=== PATIENT | female | born 1955 | race Caucasian/White ===

== ENCOUNTER 2019-10-01 14:48 | Observation (INO) ==
--- NOTE | 2019-10-01 15:22 | ED.PDOC ---
General ED Provider: Dr. MARCUS TALAMANTES Chief Complaint: Abdominal Pain Stated Complaint: Chest pain "like a heart attack" when eating food. OK last nigh with chicken soup; today sharp pain when eating steak at lunch - pain is substernal/epigastric...followed by vomiting. Time Seen by Physician: 15:05 Mode of Arrival: Walk-In Information Source: Patient Exam Limitations: No limitations (except patient is a poor historian - has difficulty expressing specific answers to specific questions) Nursing and Triage Documentation Reviewed and Agree: Yes Does patient meet sepsis criteria?: No System Inflammatory Response Syndrome: Not Applicable Sepsis Protocol: For patient's 13 years and over: Temp is 96.8 and below OR 101 and greater Pulse >90 BPM Resp >20/minute Acutely Altered Mental Status Are patient's symptoms suggestive of a new infection, such as: -Pneumonia -Skin, Soft Tissue -Endocarditis -UTI -Bone, Joint Infection -Implantable Device -Acute Abdominal Infection -Wound Infection -Meningitis -Blood Stream Catheter Infection -Unknown Review of Systems Review Of Systems Constitutional: Reports No symptoms Eyes: Reports No symptoms Ears, Nose, Mouth, Throat: Reports No symptoms and Ear pain Respiratory: Reports No symptoms and Cough Cardiac: Reports No symptoms and Chest pain (When eating/swallowing) GI: Reports No symptoms Musculoskeletal: Reports No symptoms Skin: Reports No symptoms Neurological: Reports No symptoms All Other Systems: Reviewed and Negative FORMERLY [facility] Medical History History of appendectomy (Acute) History of cholecystectomy (Acute) History of hysterectomy (Acute) Hypertension (Acute) Hypoglycemia (Acute) Family History Other Cancer Hypertension Social History Smoking and tobacco status: Former smoker How long ago did patient quit smoking: approx 40 years ago Female Reproductive History Menstrual Hx Hysterectomy: Yes Hx Tubal Ligation: No Physical Exam Physical Exam Appearance: Reports Well-appearing Ill-appearing: None Pain Distress: Mild (Epigastric/substernal with eating/swallowing solid foods) Eyes: Reports AMIE and EOMI ENT: Reports Ears normal and Nose normal Neck: Supple Respiratory: Reports Airway patent Cardiovascular: Reports RRR GI/: Reports Soft Musculoskeletal: Reports Normal strength Skin: Reports Warm, Dry and Normal color Neurological: Reports Sensation intact and Motor intact Psychiatric: Reports Affect appropriate and Mood appropriate Interpretation EKG Interpretation Time of EKG #1: 15:59 Rate: Normal Rhythm: Sinus Ectopy: None [place]: NL ST Segment: Normal Interpretation: Wide QRS; no apparent acute changes Re-Evaluation Re-Evaluation Time of Re-Evaluation: 17:10 Status: Unchanged (Was improved when seen by me versus episode at the time of eating steak at lunch) Vital Signs Stable: Yes Appearance: NAD Skin: Warm and Dry Neuro: Alert and Oriented X3 Additional Comments: Advised of negative lab findings and discussion with Dr. Hanson/plan admission and watch/do GI Series swallowing study Physician Notification Case Discussed Physician Notified: Dr Hanson; discussion re paitent and nature of CP with eating/swallowing Critical Care Note Critical Care Note Total Time (mins): 40 Comments: Review of EKG, clinical and historical picture, labs, X Ray and discussion with Dr. Hanson and decision to admit Course Course Hematology/Chemistry: 10/02/19 04:50 10/02/19 04:50 Orders, Labs, Meds: Lab Review 10/01/19 10/01/19 10/01/19 15:45 15:47 15:47 WBC 11.40 H RBC 4.55 Hgb 13.8 Hct 40.2 MCV 88.4 MCH 30.3 MCHC 34.3 RDW Coeff of Adeola 12.4 Plt Count 401 Immature Gran % (Auto) 0.3 Neut % (Auto) 65.4 Lymph % (Auto) 28.0 [place] % (Auto) 4.1 Eos % (Auto) 1.8 Baso % (Auto) 0.4 Immature Gran # (Auto) 0.0 Neut # (Auto) 7.5 H Lymph # (Auto) 3.2 [place] # (Auto) 0.5 Eos # (Auto) 0.2 Baso # (Auto) 0.1 Sodium 139.0 Potassium 3.84 Chloride 106.1 Carbon Dioxide 23.8 Anion Gap 12.94 BUN 18.0 H Creatinine 0.61 Estimated GFR (MDRD) 99.00 BUN/Creatinine Ratio 29.50 Glucose 97.9 Calcium 9.12 Total Bilirubin 0.26 AST 34.8 ALT 19.0 Alkaline Phosphatase 89.4 Total Creatine Kinase 141.5 H CK-MB (CK-2) 2.060 CK-MB (CK-2) % 1.4500 Troponin I Cancelled < 0.012 Total Protein 7.29 Albumin 4.17 Globulin 3.12 Albumin/Globulin Ratio 1.33 Orders Category Date Time Status EKG-(ED ONLY) Stat CARDIO 10/01/19 15:22 Completed CBC W/ AUTO DIFF Stat LAB 10/01/19 15:47 Completed COMPREHENSIVE METABOLIC PANEL Stat LAB 10/01/19 15:47 Completed TROPONIN I Stat LAB 10/01/19 15:47 Completed CHEST, 2 VIEWS PA & LAT Stat RADS 10/01/19 15:22 Completed Medications Generic Name Dose Route Start Last Admin Trade Name Freq PRN Reason Stop Dose Admin Acetaminophen 650 mg 10/01/19 18:32 Tylenol PO Q4H PRN Pain Aspirin 81 mg 10/02/19 08:00 Aspirin Ec PO DAILYWM SHANITA Atropine Sulfate 0.5 mg 10/01/19 18:32 Atropine Sulfate Pfs IVP ONCE PRN Symptomatic Bradycardia Chlordiazepoxide HCl 10 mg 10/01/19 21:00 10/01/19 21:21 Librium PO 10 mg BID SHANITA Administration Losartan Potassium 50 mg 10/01/19 21:00 10/01/19 21:21 Cozaar PO 50 mg BID SHANITA Administration Nebivolol 5 mg 10/02/19 09:00 Bystolic PO DAILY SHANITA Nitroglycerin 0.4 mg 10/01/19 18:32 Nitrostat SL Q5MIN X 3 DOSES PRN Chest Pain Ondansetron HCl 4 mg 10/01/19 20:40 10/01/19 21:21 Zofran 4 Mg/2 Ml IVP 4 mg Q6H PRN Administration Nausea / Vomiting Pantoprazole Sodium 40 mg 10/02/19 06:30 Protonix PO QDAC SHANITA Sodium Chloride 1 syr 10/01/19 21:00 10/02/19 04:50 Saline Flush IVF 1 syr Q8HR SHANITA Administration Discontinued Medications Generic Name Dose Route Start Last Admin Trade Name Freq PRN Reason Stop Dose Admin Pantoprazole Sodium 40 mg 10/02/19 09:00 Protonix PO DAILY SHANITA Vital Signs: Temp Pulse Resp BP Pulse Ox 10/01/19 14:48 100.3 F H 64 16 179/89 H 98 Discharge Plan Discharge Patient Disposition: ADMITTED INPATIENT Discharge Problem: Chest pain ED Provider: MARCUS TALAMANTES Condition: Good Discharge Date/Time: 10/01/19 19:40
[2019-10-01 15:50] LABS: HEMATOCRIT 40.2 % (37.0-47.0)
--- NOTE | 2019-10-01 15:58 | DI ---
Exam: Two views of the chest. Comparison: None available. Reason for exam: Chest pain. FINDINGS: No pneumothorax, pleural effusion, or focal consolidation. Patchy airspace opacities are seen in the lung bases. The cardiac silhouette is prominent in size. There is exaggeration of the t horacic kyphotic curve. Grade 1 retrolithesis is seen in the lower thoracic spine on the lateral vie w. Impression: Basilar atelectasis/pneumonia with mild cardiomegaly. Grade 1 retrolithesis in the lower thoracic spine. If clinical concern exists, further evaluation ma y be performed.
[2019-10-01] MEDS ORDERED: ATROPINE SULFATE PFS IVP PRN (18:32)
[2019-10-01] MEDS ORDERED: NITROSTAT SL PRN (18:32)
[2019-10-01] MEDS ORDERED: TYLENOL PO PRN (18:32)
[2019-10-01 20:07] VITALS: BMI 25.3
[2019-10-01] MEDS ORDERED: ZOFRAN 4 MG/2 ML IVP PRN (20:40)
[2019-10-01] MEDS: COZAAR PO SCH (21:21)
[2019-10-01] MEDS: LIBRIUM PO SCH (21:21)
[2019-10-02] MEDS ORDERED: PROTONIX PO SCH ×2 (06:30→09:00)
--- NOTE | 2019-10-02 09:28 | PCM.PROG ---
Attending Provider: ATTENDING PROVIDER: Dr. CASEY GOLDSTEIN This patient is seen with Berta Hanks, Nurse Practitioner. DATE OF SERVICE: 10/02/19 SUBJECTIVE: This 64 year old /WHITE F was hospitalized 10/01/19. The patient is resting comfortably. She is having epigastric pain and vomiting after eating not associated with different foods. She has been on Protonix for some time. At this time the pain is mid sternum. She has a history of hypertension and obesity. NO shortness of breath. No sweating. Non-exertional chest pain that is relieved with vomiting. REVIEW OF SYSTEMS: CONSTITUTIONAL: No night sweats. No fatigue, malaise, lethargy. No fever or chills. HEENT: Eyes: No visual changes. No eye pain. No eye discharge. ENT: No runny nose. No epistaxis. No sinus pain. No odynophagia. No congestion. RESPIRATORY: No cough, no congestion. No hemoptysis. No shortness of breath. CARDIOVASCULAR: No angina symptoms. No CHF symptoms. No atypical chest pain for CAD. No palpitations. No orthopnea.. GASTROINTESTINAL: No abdominal pain. Nausea and vomiting. No diarrhea or constipation. No hematemesis. No hematochezia. Epigastric pain GENITOURINARY: No urgency. No frequency. No dysuria. No hematuria. No obstructive symptoms. No discharge. No pain. No significant abnormal bleeding. MUSCULOSKELETAL: No musculoskeletal pain; no joint swelling. NEUROLOGICAL: Awake, alert, oriented to time, place and person. No headache. No neck pain. No syncope. No seizures. No dizziness. PSYCHIATRIC: Anxious. No depression. No suicidal thoughts. No homicidal thoughts. SKIN: No rash. No lesions. No wounds. ENDOCRINE: No unexplained weight loss. No weight gain. HEMATOLOGIC/LYMPHATIC: No anemia. No purpura. No petechiae. No prolonged or excessive bleeding. No palpable lymph nodes. PHYSICAL EXAMINATION: GENERAL: The patient is awake, alert and oriented, lying in bed in no distress. VITAL SIGNS: Temperature 97.5 F, Pulse 63, Respiratory Rate 20, BP 134/87, Pulse Ox 96% HEENT: Head normocephalic, atraumatic. Eyes: Extraocular muscles are intact. Pupils are equal, round and reactive to light and accommodation. Ears: No lesions. Nose appeared normal. Throat: No exudate or erythema. NECK: Supple. No JVD, no carotid bruit. No lymphadenopathy or thyromegaly. LUNGS: Diminished breath sounds. Clear to auscultation. Percussion note normal. Chest symmetrical. Epigastric tenderness. HEART: S1, S2, no S3. No murmurs. No cyanosis or clubbing. No ascites. Pulses: Dorsalis pedis and posterior tibial pulses +1 to +2 both sides. ABDOMEN: Soft. Non-tender. Bowel sounds active. No CVA tenderness. No mass felt. EXTREMITIES: No edema. Full range of motion of all extremities, equal. NEUROLOGIC: No focal deficit. Cranial nerves II through XII are grossly intact. No headache, no double vision or headache. SKIN: Not dry. Intact. Turgor-normal. LYMPHATIC: No palpable lymph nodes/no lymphedema. MUSCULOSKELETAL: Normal joints with no swelling. Muscle tone is normal. LAB REVIEW: 10/02/19 04:50 10/02/19 04:50 10/02/19 04:50: WBC 7.16, RBC 4.62, Hgb 13.7, Hct 42.0, MCV 90.9, MCH 29.7, MCHC 32.6, RDW Coeff of [place] 12.6, Plt Count 393, Immature Gran % (Auto) 0.3, Neut % (Auto) 53.6, Lymph % (Auto) 36.0, [place] % (Auto) 5.9, Eos % (Auto) 3.8, Baso % (Auto) 0.4, Immature Gran # (Auto) 0.0, Neut # (Auto) 3.8, Lymph # (Auto) 2.6, [place] # (Auto) 0.4, Eos # (Auto) 0.3, Baso # (Auto) 0.0 10/02/19 04:50: Sodium 141.2, Potassium 3.85, Chloride 104.4, Carbon Dioxide 28.3, Anion Gap 12.35, BUN 17.0, Creatinine 0.57 L, Estimated GFR (MDRD) 107.00, BUN/Creatinine Ratio 29.82, Glucose 88.8, Calcium 8.91, Total Bilirubin 0.57, AST 25.5, ALT 18.6, Alkaline Phosphatase 76.2, Total Protein 6.92, Albumin 3.89, Globulin 3.03, Albumin/Globulin Ratio 1.28 10/02/19 02:45: Total Creatine Kinase 84.0, Troponin I < 0.012 10/01/19 15:47: Sodium 139.0, Potassium 3.84, Chloride 106.1, Carbon Dioxide 23.8, Anion Gap 12.94, BUN 18.0 H, Creatinine 0.61, Estimated GFR (MDRD) 99.00, BUN/Creatinine Ratio 29.50, Glucose 97.9, Calcium 9.12, Total Bilirubin 0.26, AST 34.8, ALT 19.0, Alkaline Phosphatase 89.4, Troponin I < 0.012, Total Protein 7.29, Albumin 4.17, Globulin 3.12, Albumin/Globulin Ratio 1.33 10/01/19 15:47: WBC 11.40 H, RBC 4.55, Hgb 13.8, Hct 40.2, MCV 88.4, MCH 30.3, MCHC 34.3, RDW Coeff of [place] 12.4, Plt Count 401, Immature Gran % (Auto) 0.3, Neut % (Auto) 65.4, Lymph % (Auto) 28.0, [place] % (Auto) 4.1, Eos % (Auto) 1.8, Baso % (Auto) 0.4, Immature Gran # (Auto) 0.0, Neut # (Auto) 7.5 H, Lymph # (Auto) 3.2, [place] # (Auto) 0.5, Eos # (Auto) 0.2, Baso # (Auto) 0.1 10/01/19 15:45: Total Creatine Kinase 141.5 H, CK-MB (CK-2) 2.060, CK-MB (CK-2) % 1.4500, Troponin I Cancelled ASSESSMENT: Please see below. 1. Chest pain, likely atypical 2. History of GERD 3. Hypertension 4. Anxiety PLAN: 1. The patient has upper GI today 2. CT abdomen and pelvis 3. Increase Protonix 40mg BID 4. Carafate 1gram QID 5. Echo 6. Lipid Panel Plan and coordination of the patient's care discussed in the presence of Electrical Mechanical Technician and nurse. SCRIBED BY: NILSA GOODRICH Divinity Teacher scribed while in presence of service performed by Dr. Goldstein/Berta Hanks APRN on 10/02/19 ([id number])
[2019-10-02] MEDS: LIBRIUM PO SCH ×2 (11:59→21:50)
[2019-10-02] MEDS: CARAFATE PO SCH ×3 (11:59→21:49)
[2019-10-02] MEDS: ASPIRIN EC PO SCH (12:00)
[2019-10-02] MEDS: BYSTOLIC PO SCH (12:00)
[2019-10-02] MEDS: COZAAR PO SCH ×2 (12:00→21:49)
[2019-10-02] MEDS: PROTONIX PO SCH ×2 (12:00→17:43)
--- NOTE | 2019-10-02 13:02 | DI ---
EXAM: Upper GI series HISTORY: Swallowing difficulty COMPARISON: None FINDINGS: Upper GI series was performed using barium. Tertiary contractions seen in the esophagus, c an be seen in dysmotility. Small to moderate sliding hiatal hernia. Mild narrowing near the gastroeso phageal junction may relate to Schatzki's ring. Reflux seen during real time examination. 13 mm bariu m tablet was administered and becomes briefly lodged at the gastroesophageal junction and passes into the stomach. The stomach appears grossly normal without mass lesion or ulcer. Duodenal diverticulum. IMPRESSION: 1. Small to moderate sliding hiatal hernia. 2. Mild narrowing near the gastroesophageal junction may relate to Schatzki's ring. Finding can be correlate with endoscopy. 3. 13 mm barium tablet was administered and becomes briefly lodged at the gastroesophageal junction and passes into the stomach. 4. Tertiary contractions in the esophagus, can be seen in dysmotility. 5. Duodenal diverticulum
--- NOTE | 2019-10-02 13:06 | CT ---
EXAM: CT abdomen pelvis with and without contrast HISTORY: Epigastric pain and vomiting COMPARISON: None TECHNIQUE: CT abdomen pelvis performed with and without intravenous contrast. Coronal and sagittal reformatted images obtained. FINDINGS: Motion artifact limits evaluation. Bibasilar cyst subsegmental atelectasis and/or scarring . No free air. No acute abnormalities of the bones. Degenerative change in the spine. Hemangioma L3. Heart borderline enlarged. Coronary calcifications. Liver appears normal. The patient status post cholecystectomy. Pancreas unremarkable. Spleen unremarkable. Adrenals unremarkable. Kidneys unremarkable. No calculi visualized in the normal course of the ureters. Bladder decompressed and p oorly very bladder only minimally distended and poorly dilated. Patient was post hysterectomy. Smal l fat-containing periumbilical hernia. Aorta normal in caliber. No lymphadenopathy or ascites. Sma ll hiatal hernia. Duodenal diverticulum. No dilated loops small bowel. Scattered fluid-filled loop s small bowel may relate to enteritis. Appendix appears normal. Portions of the colon decompressed and poorly evaluated. Mild fecal retention in the colon. IMPRESSION: 1. Possible mild enteritis. Recommend clinical correlation. 2. Mild fecal retention in the colon. 3. Small hiatal hernia. 4. Duodenal diverticulum 5. Coronary calcifications.
--- NOTE | 2019-10-02 13:22 | PN ---
DATE OF SERVICE: 10/01/19 SUBJECTIVE: The patient was admitted through the Emergency Room with complaint of having acute gastroenteritis type of symptoms. The patient is unable to swallow. The patient will be admitted with IV fluids. In the morning she is going to go through upper GI with barium esophagogram. She will be put on Protonix and Carafate. TIME SPENT: More than 30 minutes. Plan and coordination of the patient's care discussed in the presence of nurse. MEHREEN
[2019-10-02] MEDS: REGLAN PO SCH ×2 (17:43→21:50)
[2019-10-03] MEDS: PROTONIX PO SCH (05:30)
[2019-10-03] MEDS: CARAFATE PO SCH ×2 (05:30→11:29)
[2019-10-03] MEDS: REGLAN PO SCH ×2 (05:31→11:28)
[2019-10-03 06:11] LABS: HEMATOCRIT 40.5 % (37.0-47.0)
[2019-10-03] MEDS: LIBRIUM PO SCH (08:56)
[2019-10-03] MEDS: ASPIRIN EC PO SCH (08:56)
[2019-10-03] MEDS: COZAAR PO SCH (08:56)
[2019-10-03] MEDS: BYSTOLIC PO SCH (08:57)
[2019-10-03 10:10] VITALS: BP 102/66; TEMP 98.2
--- NOTE | 2019-10-06 09:54 | PN ---
DATE OF SERVICE: 10/02/19 SUBJECTIVE: The patient was seen and examined with the nurse practitioner. The patient's upper GI reports were explained to the patient that she has dysmotility and esophageal spasms which could be triggered by reflux but it could independently show up and can cause chest pains and difficulty swallowing. The patient is going to be started on Reglan 5 mg prior to meals. Continue Protonix and Carafate. The patient's condition has improved. She is able to keep soft food down. Cardiac markers are negative. Chest pain is atypical. TIME SPENT: More than 30 minutes. Plan and coordination of the patient's care discussed in the presence of nurse. MEHREEN
--- NOTE | 2019-10-06 12:22 | ECHO2D ---
Date of Exam: 10/03/19 Ordering Physician: DR. CASEY GOLDSTEIN Room #: 116 Reason for Echo: SOB, CHEST PAIN, EPIGASTRIC PAIN M-Mode Normal Adult Results LV Dimensions Normal Adult Results AoV Opening excursions >1.6 >1.6 LVEDD-base- 3.5-5.8 5.0 Ao root dimensions 2.0-3.7 3.6 LVESD-base- 3.1-4.6 L. Atrium dimensions 1.9-3.8 3.8 Post. Wall thickness 0.8-1.1 1.1 IV septum (thickness) 0.7-1.2 1.2 Post. Wall excursion 0.72-1.3 NORMAL Septal motion NORMAL Systolic motion R. Ventricular cavity 1.5-2.0 NORMAL LVEF 60% 60% Paradoxical septal wall motion NORMAL 2-D : 2-D M Mode Echocardiogram was performed using apical four chamber and left parasternal long and short axis views. Mitral, tricuspid and aortic valves appear to be normal. Contractility of the left ventricle seems to be normal, so is the cavity size. Left atrial cavity size and aortic root appear to be normal. There is no pericardial effusion. There is no thrombus noted in the left ventricle or left atrial cavity. No mitral valve prolapse noted. M-MODE: MV: NORMAL AV: NORMAL TV: NORMAL PV: CHAMBER SIZE: NORMAL WALL MOTION: NORMAL PERICARDIUM: NORMAL INTERPRETATION: 1. BORDERLINE LEFT VENTRICULAR HYPERTROPHY 2. NORMAL VALVES 3. NORMAL LEFT VENTRICULAR CONTRACTILITY MTDD
--- NOTE | 2019-10-06 13:26 | PN ---
DATE OF SERVICE: 10/03/2019 OBSERVATION ADMISSION/DISCHARGE NOTE SUBJECTIVE: 64 year old white female hospitalized nausea, vomiting and acute gastroenteritis type of symptoms. The patient also had difficulty swallowing with dysphagia. The patient on further work up had a normal CT scan of the abdomen. Upper GI showed esophageal spasm with dysmotility with possibility of stricture. In any case the patient will undergo EGD. During the stay in the hospital she was given Reglan, Carafate and Protonix and IV fluids. Her swallowing improved. She is able to eat soft diet without any problems. She has no nausea and no vomiting. Echo showed normal LV contractility and normal LV size, normal valvular structures. EKG and cardiac markers were negative. The patient's chest pain was typical of esophageal spasm, atypical at rest, nonexertional. The patient was discharged home in stable condition to be followed as an outpatient. REVIEW OF SYSTEMS: CONSTITUTIONAL: No night sweats. No fatigue, malaise, lethargy. No fever or chills. HEENT: Eyes: No visual changes. No eye pain. No eye discharge. ENT: No runny nose. No epistaxis. No sinus pain. No sore throat. No odynophagia. No congestion. RESPIRATORY: No cough, no congestion. No hemoptysis. No shortness of breath. CARDIOVASCULAR: No angina symptoms. No CHF symptoms. No atypical chest pain for CAD. No palpitations. No PND. No orthopnea. GASTROINTESTINAL: No abdominal pain. No nausea or vomiting. No diarrhea or constipation. No hematemesis. No hematochezia. GENITOURINARY: No urgency. No frequency. No dysuria. No hematuria. No obstructive symptoms. No discharge. No pain. No significant abnormal bleeding. MUSCULOSKELETAL: No musculoskeletal pain; no joint swelling. NEUROLOGICAL: No headache. No neck pain. No syncope. No seizures. No dizziness. PSYCHIATRIC: Not anxious. No depression. No suicidal thoughts. No homicidal thoughts. SKIN: No rash. No lesions. No wounds. ENDOCRINE: No unexplained weight loss. No weight gain. HEMATOLOGIC/LYMPHATIC: No anemia. No purpura. No petechiae. No prolonged or excessive bleeding. No palpable lymph nodes. PHYSICAL EXAMINATION: VITAL SIGNS: Temperature 98.2, pulse 76, blood pressure 102/66, respiratory rate 18 and oxygen saturation 95% on room air. HEENT: Head normocephalic, atraumatic. Eyes: Extraocular muscles are intact. Pupils are equal, round and reactive to light and accommodation. Ears: No lesions. Nose appeared normal. Throat: No exudate or erythema. NECK: Supple. No JVD, no carotid bruit. No lymphadenopathy or thyromegaly. LUNGS: Clear to auscultation. Percussion note normal. Chest symmetrical. HEART: S1, S2, no S3. No murmurs. No cyanosis or clubbing. No ascites. Pulses: Dorsalis pedis and posterior tibial pulses +1 to +2 bilaterally. ABDOMEN: Soft. Nontender. Bowel sounds active. No CVA tenderness. No mass felt. EXTREMITIES: No edema. Full range of motion of all extremities, equal. NEUROLOGIC: No focal deficit. Cranial nerves II through XII are grossly intact. No headache, no double vision or headache. SKIN: Not dry. Intact. Turgor - normal. LYMPHATIC: No palpable lymph nodes/no lymphedema. MUSCULOSKELETAL: Normal joints with no swelling. Muscle tone is normal. LABS: hgb 13.7, hct 40, WBC 11,000 normal differential, creatinine 0.5, BUN 20, potassium 3.7, Echocardiogram showed borderline LVH with normal LV contractility and normal valves. EKG is sinus rhythm. No acute changes times two. Cardiac markers negative for acute myocardial event. ASSESSMENT: 1. Acute gastroenteritis 2. Dysphagia with chest pain likely esophageal spasm with dysmotility of the esophagus 3. Dehydration, resolved 4. Hypertension 5. Generalized anxiety disorder PLAN: 1. Discharge home. 2. Instruction to come back on Saturday morning as an outpatient to be seen on followup. 3. No work until released. 4. Appointment scheduled with Randee Mar APRN for Dr. Karson Fernandez on October 15 at 2:15pm. TIME SPENT: More than 30 minutes. Plan and coordination of the patient's care discussed in the presence of nurse. MEHREEN
--- NOTE | 2019-10-06 13:39 | DS ---
DATE OF SERVICE: 10/03/2019 FINAL DIAGNOSIS: 1. Acute gastroenteritis 2. Dysphagia with chest pain likely esophageal spasm with dysmotility of the esophagus 3. Dehydration, resolved 4. Hypertension 5. Generalized anxiety disorder DISCHARGE INSTRUCTIONS: Discharge home. Instruction to come back on Saturday morning as an outpatient to be seen on followup. No work until released. MEDICATIONS AT DISCHARGE: Librium 10mg twice a day PRN Losartan 50mg BID Bystolic 5mg PO daily Pantoprazole 40mg twice a day Reglan 5mg TID prior to meals Carafate 1 gram QID NEW PRESCRIPTIONS: Reglan 5mg TID to be taken for 10 days Carafate 1 gram to be taken for 15 days. Pantoprazole 40mg for a month with one refill. DIET INSTRUCTIONS: Soft bland diet till you see the doctor. ACTIVITY: Resume as tolerated SMOKING: Former smoker DISEASE SPECIFIC EDUCATION: Appointments Medications Diet LABS: hgb 13.7, hct 40, WBC 11,000 normal differential, creatinine 0.5, BUN 20, potassium 3.7, Echocardiogram showed borderline LVH with normal LV contractility and normal valves. EKG is sinus rhythm. No acute changes times two. Cardiac markers negative for acute myocardial event. HOSPITAL COURSE: 64 year old white female hospitalized nausea, vomiting and acute gastroenteritis type of symptoms. The patient also had difficulty swallowing with dysphagia. The patient on further work up had a normal CT scan of the abdomen. Upper GI showed esophageal spasm with dysmotility with possibility of stricture. In any case the patient will undergo EGD. During the stay in the hospital she was given Reglan, Carafate and Protonix and IV fluids. Her swallowing improved. She is able to eat soft diet without any problems. She has no nausea and no vomiting. Echo showed normal LV contractility and normal LV size, normal valvular structures. EKG and cardiac markers were negative. The patient's chest pain was typical of esophageal spasm, atypical at rest, nonexertional. The patient was discharged home in stable condition to be followed as an outpatient. CONDITION: Stable TIME SPENT: More than 60 minutes. [facility]
--- NOTE | 2019-10-06 13:39 | PN ---
OBSERVATION 10/01/2019: Level 5 10/02/2019: Intermediate 10/03/2019: D as in discharge MTDD
--- NOTE | 2019-10-13 13:56 | SSS ---
DATE OF SERVICE: 10/01/19 (ADMIT) 10/03/19 (DISCHARGE) REASON FOR ADMISSION: Chest pain/epigastric pain. HISTORY OF PRESENT ILLNESS: 64-year-old female presented to ER with complaint of chest pain for approximately one month. On day of arrival she reported epigastric pain while eating lunch, became nauseated and vomited. She vomited several times. Pain resolved after vomiting. This has happened before. REVIEW OF SYSTEMS: CONSTITUTIONAL: No night sweats. No fatigue, malaise, lethargy. No fever or chills. HEENT: Eyes: No visual changes. No eye pain. No eye discharge. ENT: No runny nose. No epistaxis. No sinus pain. No sore throat. No odynophagia. No ear pain. No congestion. RESPIRATORY: No cough, no congestion. No hemoptysis. No shortness of breath. CARDIOVASCULAR: No angina symptoms. No CHF symptoms. Chest pain with eating and swallowing. No palpitations. No orthopnea. GASTROINTESTINAL: Emesis several times. No abdominal pain. No nausea. No diarrhea or constipation. No hematemesis. No hematochezia. GENITOURINARY: No dysuria. No hematuria. No obstructive symptoms. No discharge. No pain. No significant abnormal bleeding. MUSCULOSKELETAL: No musculoskeletal pain. No joint swelling. NEUROLOGICAL: Awake, alert, oriented to time, place and person. No headache. No neck pain. No syncope. No seizures. No dizziness. PSYCHIATRIC: Not anxious. No depression. No suicidal thoughts. No homicidal thoughts. SKIN: No rash. No lesions. No wounds. ENDOCRINE: No unexplained weight loss. No weight gain. HEMATOLOGIC/LYMPHATIC: No anemia. No purpura. No petechiae. No prolonged or excessive bleeding. No palpable lymph nodes. PAST HISTORY: Hypertension Appendectomy Cholecystectomy Hysterectomy GERD PERSONAL/FAMILY HISTORY/SOCIAL HISTORY: The patient is . She lives alone. She relies on denominational family for support. She works. No alcohol. Nonsmoker. Independent with ADLs. PHYSICAL EXAMINATION: GENERAL: The patient is a female, age 64 years. Height is 68 inches, weight 166 #. BMI 25.3. Vital signs: Temperature 97.6, pulse 61, respiratory rate 20, BP 148/96 left, right 166/99. 100% on room air. HEENT: Head normocephalic, atraumatic. Eyes: Extraocular muscles are intact. Pupils are equal, round and reactive to light and accommodation. Ears: No lesions. Nose appeared normal. Throat: No exudate or erythema. NECK: Supple. No JVD, no carotid bruit. No lymphadenopathy or thyromegaly. LUNGS: Clear to auscultation. Percussion note normal. Chest symmetrical. HEART: S1, S2, no S3. No murmurs. No cyanosis or clubbing. No ascites. Pulses: Dorsalis pedis and posterior tibial pulses +1 to +2 bilaterally. ABDOMEN: Epigastric tenderness. Soft. Bowel sounds active. No CVA tenderness. No mass felt. EXTREMITIES: No edema. Full range of motion of all extremities, equal. NEUROLOGIC: No focal deficit. Cranial nerves II through XII are grossly intact. No headache, no double vision or headache. SKIN: Dry. Intact. Turgor - normal. LYMPHATIC: No palpable lymph nodes/no lymphedema. MUSCULOSKELETAL: Normal joints with no swelling. Muscle tone is normal. Old/present records reviewed Office records reviewed. EDUCATION CARRIED OUT ABOUT: Peptic ulcer, angina. ALLERGIES: PENICILLIN AND SULFA MEDICATIONS: Bystolic ASA Losartan Librium Protonix LABS/EKG'S/X-RAY/ECHO/ABG: WBC 11.40, BUN 18, CPK 141.5. Chest x-ray - basilar atelectasis/pneumonia with mild cardiomegaly. PROGRESS NOTES: See EMR. DIAGNOSES: 1. EPIGASTRIC/CHEST PAIN/GASTROENTERITIS 2. HISTORY OF HYPERTENSION RECOMMENDATIONS/PLAN: 1. 10/03 GI appointment 10/15/[address] Fernandez/Randee Mar APRN. 2. Protonix 40 mg. 3. Carafate 1 gm p.o. daily 4. IV fluids. 5. Soft diet. TIME SPENT: More than 70 minutes. MTDD
== END 2019-10-03 11:50 | disposition home or self-care (01) ==
LOC: ED 14:48 → INTOOBSV 17:31 → MEDSURG B 17:31
PROVIDERS: ADMIT Internal Medicine; ATTEND Internal Medicine
DX: K52.9 Noninfective gastroenteritis and colitis, unspecified; R13.10 Dysphagia, unspecified; R07.9 Chest pain, unspecified; Z79.899 Other long term (current) drug therapy; I10 Essential (primary) hypertension; E86.0 Dehydration